=== PATIENT | female | born 1940 | race Caucasian/White ===

== ENCOUNTER → 2017-01-30 | Day surgery (SDC) | payer MEDICARE, OTHER ==
[~2017-01-30] MED LIST: LACTATED RINGER'S 1000 ML INJ 1,000 ML ONE; PROPOFOL 200 MG/20 ML AMP IV ONE
--- NOTE | 2017-01-30 12:06 | GIPROC ---
[facility] [address] [facility], [id number] EGD WITH DILATION PROCEDURE REPORT EXAM DATE: 01/30/2017 PATIENT NAME: Marlene Argueta MR#: [id number] BIRTHDATE: 1940 ATTENDING: Maylin Murphy MD ORDER #: [id number] ADJUNCT SOCIOLOGY PROFESSOR: Susan Amin RN STATUS: outpatient INDICATIONS: The patient is a 76 yr old female here for an EGD with dilation due to dysphagia PROCEDURE PERFORMED: EGD w/ biopsy EGD w/ dilation of esophagus via guidewire MEDICATIONS: None and Per Anesthesia. TOPICAL ANESTHETIC: CONSENT: The patient understands the risks and benefits of the procedure and understands that these risks include, but are not limited to: sedation, allergic reaction, infection, perforation and/or bleeding. Alternative means of evaluation and treatment include, among others: physical exam, x-rays, and/or surgical intervention. The patient elects to proceed with this endoscopic procedure. medical equipment was checked for proper function. Hand hygiene and appropriate measures for infection prevention was taken. After the risks, benefits and alternatives of the procedure were thoroughly explained, Informed consent was verified, confirmed and timeout was successfully executed by the treatment team. The patient was anesthetized with topical anesthesia and the EC-2990i ([id number]) endoscope was introduced through the mouth and advanced to the pylorus. The instrument was slowly withdrawn as the mucosa was fully examined. 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 Dilation was performed at gastroesophageal junction. DILATOR: SIZE(S): RESISTANCE: HEME: APPEARANCE: Dilator: Savary over guidewire Size(s): 15, 17 COMMENT: Retroflexed views revealed a hiatal hernia ADVERSE EVENTS: There were no complications. IMPRESSIONS: 1. 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 Retroflexed views revealed a hiatal hernia RECOMMENDATIONS: 1. Await biopsy results. Biopsy results will not be ready for 7-10 days. If you don't hear from us in two weeks, call our office for biopsy results. 2. Anti-reflux regimen 3. Continue PPI 4. Dilatations PRN 5. May need egd with ballon dilatation of pyloric channel-under fluoro if symptoms persist stool ova/parasites hida scan REPEAT EXAM: EGD pending biopsy results Maylin Murphy MD eSigned: Maylin Murphy MD 01/30/2017 12:05 PM cc: Gt Wade PATIENT NAME: Marlene Argueta MR#: [id number]
== END | disposition home or self-care (01) ==
LOC: ESDC 08:18
PROVIDERS: ATTEND Internal Medicine Gastroenterology
DX: K22.2 Esophageal obstruction (principal); R13.10 Dysphagia, unspecified; K31.1 Adult hypertrophic pyloric stenosis; K29.70 Gastritis, unspecified, without bleeding; K44.9 Diaphragmatic hernia without obstruction or gangrene
CPT/HCPCS: 00740; 43236; 43239; 88305; 88312; J7120